=== PATIENT | male | born 1985 | race Two or more races ===

== ENCOUNTER 2023-05-06 01:00 | Emergency (ER) | payer OTHER ==
[~2023-05-06] VITALS: Ht 180.3 cm; Wt 83.9 kg
[2023-05-06] MEDS ORDERED: ZESTRIL20 MG (01:23)
[2023-05-06] MEDS ORDERED: LEVSIN/SL0.125 MG SL (03:35)
[2023-05-06] MEDS ORDERED: PHAZYME180 MG PO (03:35)
== END 2023-05-06 03:38 ==
LOC: ER 01:00
DX: K59.00 Constipation, unspecified (principal); F41.8 Other specified anxiety disorders